=== PATIENT | male | born 1990 | race American Indian/Alaskan Native ===

== ENCOUNTER 2020-03-29 03:47 | Emergency (ER) | payer SELFPAY ==
[2020-03-29 04:25] VITALS: BP 149/90
--- NOTE | 2020-03-29 05:40 | Emergency Department Report ---
ED General Adult HPI - General Chief complaint: Extremity Injury, Upper Stated complaint: ANKLE PAIN X 3 DAYS Time Seen by Provider: 03/29/20 04:25 Source: patient, EMS Mode of arrival: Ambulatory Limitations: No Limitations - History of Present Illness Initial comments: 29-year-old male presents emergency department complaining of pain and swelling to the right hand with occasional flows and flex fingers at the care in his backpack outside for prolonged periods of time can have become mildly swollen with some reports of redness but no fever, chills, sweats no numbness or tingling states that occasionally his fingers get caught and stuck in a flexed position is also been experiencing some swelling to her ankles, unknown etiology as well does report doing excessive amount of walking in flip- flops outside which may have contributed but not sure -: Sudden Radiation: non-radiation Quality: dull Consistency: constant Improves with: none Worsens with: none Associated Symptoms: denies: confusion, chest pain, cough, loss of appetite, malaise, nausea/vomiting, syncope, weakness - Related Data Previous Rx's Medication Instructions Recorded Last Taken Type Ketorolac [Toradol] 10 mg PO Q6H PRN #10 tablet 03/29/20 Unknown Rx Allergies Allergy/AdvReac Type Severity Reaction Status Date / Time No Known Allergies Allergy Verified 03/29/20 04:25 ED Review of Systems ROS: Stated complaint: ANKLE PAIN X 3 DAYS Other details as noted in HPI Comment: All other systems reviewed and negative ED Past Medical Hx - Past Medical History Previous Medical History?: No - Surgical History Past Surgical History?: No - Social History Smoking Status: Current Every Day Smoker - Medications Home Medications: Home Medications Medication Instructions Recorded Confirmed Last Taken Type Ketorolac [Toradol] 10 mg PO Q6H PRN #10 tablet 03/29/20 Unknown Rx ED Physical Exam - General Limitations: No Limitations General appearance: alert, in no apparent distress - Head Head exam: Present: atraumatic, normocephalic - Eye Eye exam: Present: normal appearance, PERRL, EOMI Pupils: Present: normal accommodation - ENT ENT exam: Present: normal exam, mucous membranes moist - Neck Neck exam: Present: normal inspection, full ROM. Absent: tenderness - Respiratory Respiratory exam: Present: normal lung sounds bilaterally. Absent: respiratory distress, wheezes, rales, chest wall tenderness, accessory muscle use, decreased breath sounds - Cardiovascular Cardiovascular Exam: Present: regular rate, normal rhythm. Absent: systolic murmur, diastolic murmur, rubs, gallop - GI/Abdominal GI/Abdominal exam: Present: soft, normal bowel sounds - Rectal Rectal exam: Present: deferred - Extremities Exam Extremities exam: Present: normal inspection - Back Exam Back exam: Present: normal inspection, full ROM. Absent: CVA tenderness (R), CVA tenderness (L), muscle spasm, paraspinal tenderness - Neurological Exam Neurological exam: Present: alert, oriented X3, CN II-XII intact, normal gait - Psychiatric Psychiatric exam: Present: normal affect, normal mood. Absent: anxious, flat affect, suicidal ideation - Skin Skin exam: Present: warm, dry, intact, normal color. Absent: rash, cyanosis, diaphoretic, erythema, urticaria, petechiae, pallor, abrasion ED Course Vital Signs 03/29/20 04:22 Temperature 97.9 F Pulse Rate 101 H Respiratory 18 Rate Blood Pressure 149/90 O2 Sat by Pulse 99 Oximetry Critical care attestation.: If time is entered above; I have spent that time in minutes in the direct care of this critically ill patient, excluding procedure time. ED Disposition Clinical Impression: Hand pain, Ankle sprain Disposition: - TO HOME OR SELFCARE Is pt being admited?: No Does the pt Need Aspirin: No Condition: Stable Instructions: Ankle Sprain, Phase I Rehab-SportsMed, Trigger Finger, Pain Without a Known Cause, Hand Exercises, Hand Pain Prescriptions: Ketorolac [Toradol] 10 mg PO Q6H PRN #10 tablet PRN Reason: Pain Referrals: PRIMARY CARE, [Primary Care Provider] - 3-5 Days [facility] [Provider Group] - 3-5 Days
== END 2020-03-29 06:00 | disposition home or self-care (01) ==
LOC: ED 03:47
DX: S93.401A Sprain of unspecified ligament of right ankle, initial encounter (principal); M79.641 Pain in right hand; F17.200 Nicotine dependence, unspecified, uncomplicated; Z79.899 Other long term (current) drug therapy; W22.8XXA Striking against or struck by other objects, initial encounter; Y93.89 Activity, other specified; Y92.89 Other specified places as the place of occurrence of the external cause; Y99.8 Other external cause status
CPT/HCPCS: 99283

== ENCOUNTER 2020-03-30 10:10 | Emergency (ER) | payer SELFPAY ==
[2020-03-30] MEDS ORDERED: LIDOCAINE-MPF (1%) 10 MG/1 ML VIAL 5 ML INFILTRATI ONE (10:23)
--- NOTE | 2020-03-30 10:23 | Emergency Department Report ---
ED Dysuria HPI - HPI Stated Complaint: BILATERAL ANKLE INJURY Time Seen by Provider: 03/30/20 10:22 ED Review of Systems ROS: Stated complaint: BILATERAL ANKLE INJURY Other details as noted in HPI ED Past Medical Hx - Social History Smoking Status: Current Every Day Smoker - Medications Home Medications: Home Medications Medication Instructions Recorded Confirmed Last Taken Type Ketorolac [Toradol] 10 mg PO Q6H PRN #10 tablet 03/29/20 Unknown Rx Dysuria Exam - Exam General: Vital signs noted. No distress. Alert and acting appropriately. Critical care attestation.: If time is entered above; I have spent that time in minutes in the direct care of this critically ill patient, excluding procedure time. ED Disposition Condition: Stable
[2020-03-30] MEDS ORDERED: AZITHROMYCIN 250 MG TAB PO ONE (10:24)
== END 2020-03-30 11:15 ==
LOC: ED 10:10
DX: M25.572 Pain in left ankle and joints of left foot (principal); M25.571 Pain in right ankle and joints of right foot; Z53.21 Procedure and treatment not carried out due to patient leaving prior to being seen by health care provider

== ENCOUNTER 2020-05-12 23:27 | Emergency (ER) | payer SELFPAY ==
[2020-05-13 00:36] VITALS: BP 138/70
--- NOTE | 2020-05-13 00:45 | Emergency Department Report ---
ED General Adult HPI - General Chief complaint: Extremity Injury, Lower Stated complaint: DOUBLE ANKLE SPRAIN Time Seen by Provider: 05/13/20 00:41 Source: patient Mode of arrival: Ambulatory Limitations: No Limitations - History of Present Illness Initial comments: 29 yo AA M pt presents with complaints with continued bilateral ankle pain and swelling x 6 weeks. Pt was sen here in March with similar complaints and did not have xrays done at that time. Has medical history includes asthma. Patient denies any redness, bruising, numbness/tingling, or difficulty moving his ankles or feet. He rates his current pain is 8/10 in severity and states the swelling seems to worsen after working on his feet all day. Patient also denies any specific injuries to his ankles or feet and states it began after walking for extended periods of time in flip-flops - Related Data Previous Rx's Medication Instructions Recorded Last Taken Type Ketorolac [Toradol] 10 mg PO Q6H PRN #10 tablet 03/29/20 Unknown Rx Naproxen 500 mg PO BID PRN #14 tablet 05/13/20 Unknown Rx Allergies Allergy/AdvReac Type Severity Reaction Status Date / Time No Known Allergies Allergy Verified 03/29/20 04:25 ED Review of Systems ROS: Stated complaint: DOUBLE ANKLE SPRAIN Other details as noted in HPI Constitutional: denies: chills, fever Genitourinary: denies: dysuria, discharge Musculoskeletal: joint swelling, arthralgia Skin: denies: change in color ED Past Medical Hx - Past Medical History Previous Medical History?: No - Surgical History Past Surgical History?: No - Social History Smoking Status: Never Smoker Substance Use Type: None - Medications Home Medications: Home Medications Medication Instructions Recorded Confirmed Last Taken Type Ketorolac [Toradol] 10 mg PO Q6H PRN #10 tablet 03/29/20 Unknown Rx Naproxen 500 mg PO BID PRN #14 tablet 05/13/20 Unknown Rx ED Physical Exam - General Limitations: No Limitations General appearance: alert, in no apparent distress - Head Head exam: Present: atraumatic, normocephalic - Eye Eye exam: Present: normal appearance - ENT ENT exam: Present: normal exam - Respiratory Respiratory exam: Absent: respiratory distress - Cardiovascular Cardiovascular Exam: Present: regular rate - Extremities Exam Extremities exam: Present: full ROM, other (Bilateral tenderness noted to anterior ankles without obvious deformity or bruising or erythema noted; patient has normal pedal pulses bilaterally). Absent: pedal edema, joint swelling - Back Exam Back exam: Present: full ROM - Neurological Exam Neurological exam: Present: alert, oriented X3, normal gait - Psychiatric Psychiatric exam: Present: normal affect, normal mood - Skin Skin exam: Present: warm, dry, intact, normal color. Absent: rash ED Course Vital Signs 05/13/20 00:31 Temperature 98.0 F Pulse Rate 95 H Respiratory 18 Rate Blood Pressure 138/70 O2 Sat by Pulse 99 Oximetry ED Medical Decision Making - Radiology Data Radiology results: report reviewed LEFT ANKLE 4 VIEWS INDICATION / CLINICAL INFORMATION: painand swelling after injury COMPARISON: None available. FINDINGS: BONES / JOINT(S): No acute fracture or subluxation. No significant arthritis. SOFT TISSUES: No significant abnormality. ADDITIONAL FINDINGS: None. - Medical Decision Making 29 yo AA M pt presents with complaints with continued bilateral ankle pain and swelling x 6 weeks. Pt was sen here in March with similar complaints and did not have xrays done at that time. Has medical history includes asthma. Patient denies any redness, bruising, numbness/tingling, or difficulty moving his ankles or feet. He rates his current pain is 8/10 in severity and states the swelling seems to worsen after working on his feet all day. Patient also denies any specific injuries to his ankles or feet and states it began after walking for extended periods of time in flip-flops X-rays are negative for any acute bony abnormalities. Discussed importance of proper shoe support, rice method of treatment, and follow-up with orthopedics. He is well-appearing, his vitals are normal, he is stable for discharge home. Strict return precautions were discussed in detail the patient verbalizes understanding. Critical care attestation.: If time is entered above; I have spent that time in minutes in the direct care of this critically ill patient, excluding procedure time. ED Disposition Clinical Impression: Bilateral ankle pain Qualifiers: Chronicity: acute Qualified Code(s): M25.571 - Pain in right ankle and joints of right foot; M25.572 - Pain in left ankle and joints of left foot Disposition: TO HOME OR SELFCARE Is pt being admited?: No Condition: Stable Instructions: Ankle Pain Prescriptions: Naproxen 500 mg PO BID PRN #14 tablet PRN Reason: pain Referrals: FERNIE RODRIGUEZ MD [Staff Physician] - 3-5 Days
--- NOTE | 2020-05-13 01:30 | XRay Report ---
LEFT ANKLE 4 VIEWS INDICATION / CLINICAL INFORMATION: painand swelling after injury COMPARISON: None available. FINDINGS: BONES / JOINT(S): No acute fracture or subluxation. No significant arthritis. SOFT TISSUES: No significant abnormality. ADDITIONAL FINDINGS: None. Signer Name: Pablito Barron MD Signed: 05/13/2020 1:26 AM Workstation Name: [id number]
== END 2020-05-13 03:14 | disposition home or self-care (01) ==
LOC: ED 23:27
DX: M25.571 Pain in right ankle and joints of right foot (principal); M25.572 Pain in left ankle and joints of left foot; Z79.899 Other long term (current) drug therapy